=== PATIENT | female | born 1945 | race Caucasian/White ===

== ENCOUNTER → 2023-03-04 | Day surgery (SDC) | payer MEDICARE, BC ==
[2023-03-03 12:14] VITALS: BMI 28.3
[~2023-03-04] MED LIST: Heparin 10,000 UNITS/ 10 ML VIAL ONE; Isoproterenol 0.2 MG/1 ML AMP ONE; Ketamine In 0.9 % NaCl 50 MG/5 ML SYRINGE ONE; Lidocaine 1% (PF) 30 ML VIAL ONE; Lidocaine 1% PF 5 ML VIAL ONE; Metoprolol Tartrate 25 MG TAB PO SCH; Metoprolol Tartrate 5 MG/5 ML VIAL ONE; Ondansetron PF 4 MG/2 ML Vial ONE; PHENYLEPHRINE-NS 100 MCG/ML 10 ML SYRINGE ONE; PROPOFOL 200 MG/20 ML VIAL ONE; Propofol 500 MG/50 ML VIAL ONE; ePHEDrine Sulfate 50 MG/10 ML VIAL ONE; fentaNYL 50 mcg/mL 1 mL Vial ONE
== END ==
LOC: SDC 08:07
PROVIDERS: ATTEND Internal Medicine Cardiovascular Disease
PROC: 02583ZZ Destruction of Conduction Mechanism, Percutaneous Approach (ICD-10-PCS; principal; 2023-03-04)
DX: I47.10 Supraventricular tachycardia, unspecified (principal); I48.0 Paroxysmal atrial fibrillation; I10 Essential (primary) hypertension; K21.9 Gastro-esophageal reflux disease without esophagitis; Z90.49 Acquired absence of other specified parts of digestive tract; Z90.89 Acquired absence of other organs; Z79.899 Other long term (current) drug therapy
CPT/HCPCS: 93621; 93623; 93653; C1730; C1760; C1894 ×4; C2630; J3010; J1644; J2001; J2405; J2704; J3490

== ENCOUNTER 2023-04-23 20:41 | Emergency (ER) | payer BC, MEDICARE ==
[2023-04-23] MEDS ORDERED: Metoprolol Tartrate 5 MG (5 mL) VIAL ONE (21:23)
[2023-04-23 21:44] LABS: #Eosinphils 0.3 thou/uL (0.0-0.7); #Monocytes 0.8 thou/uL (0.11-0.59); #Neutrophils 4.4 thou/uL (1.40-6.50); %Basophils 0.5 % (0.0-1.0); %Eosinophils 3.5 % (0.0-10.0); %Lymphocytes 29.9 % (21.0-51.0); %Monocytes 10.6 % (0.0-10.0); %Neutrophils 55.2 % (42.0-75.0); Hematocrit 44.7 % (36.0-47.0); Hemoglobin 14.9 g/dL (12.0-16.0); Mean Corpuscular HGB CONC 33.3 g/dL (32.0-36.0); Mean Corpuscular Hemoglobin 30.2 pg (27.0-31.0); Mean Corpuscular Volume 90.5 fl (78.0-98.0); Mean Platelet Volume 10.7 fL (7.4-10.4); Platelet Count 257 10x3/uL (130-400); RBC Distribution Width 13.2 % (11.5-14.5); Red Blood Cell (RBC) Count 4.94 mill/uL (4.20-5.40); White Blood Cell (WBC) Count 7.9 10x3/uL (4.8-10.8)
[2023-04-23 21:57] LABS: INR-International Normal Ratio 1.1; PTT 30.4 sec (22.9-36.1)
[2023-04-23 22:08] LABS: ALT (SGPT) 25 U/L (8-55); AST (SGOT) 22 U/L (5-34); Albumin 4.1 g/dL (3.4-4.8); Alkaline Phosphatase 113 U/L (40-110); Anion Gap 12 mmol/L (10-20); BUN (Urea Nitrogen) 18 mg/dL (9.8-20.1); Bilirubin, Total 0.3 mg/dL (0.2-1.2); Calc. Creatinine Clearance 0 mL/min (70-130); Carbon Dioxide 27 mmol/L (23-31); Chloride 107 mmol/L (98-107); Estimated GFR 73; Globulin 3.6 g/dL (2.4-3.5); Glucose 112 mg/dL (83-110); Magnesium 1.9 mg/dL (1.6-2.6); Potassium 3.5 mmol/L (3.5-5.1); Protein, Total 7.7 g/dL (5.8-8.1); Sodium 142 mmol/L (136-145)
[2023-04-23 22:10] LABS: Troponin I 0.014 ng/mL (< 0.028)
[2023-04-23] MEDS ORDERED: dilTIAZem 125 MG/25 ML SDV ONE (22:52)
== END 2023-04-23 23:30 | disposition home or self-care (01) ==
LOC: ERS 20:41
DX: I48.91 Unspecified atrial fibrillation (principal); Z79.01 Long term (current) use of anticoagulants
CPT/HCPCS: 36415; 71045; 80053; 83735; 84484; 85025; 85610; 85730; 86850; 86900; 86901; 93005; 96361; 96374

== ENCOUNTER 2023-05-04 17:18 | Emergency (ER) | payer MEDICARE ==
[2023-05-04] MEDS ORDERED: dilTIAZem 25 MG/5 ML VIAL ONE (17:56)
[2023-05-04] MEDS ORDERED: dilTIAZem 125 MG/25 ML SDV ONE (17:56)
[2023-05-04 18:30] LABS: #Eosinphils 0.2 thou/uL (0.0-0.7); #Monocytes 0.8 thou/uL (0.11-0.59); #Neutrophils 5.3 thou/uL (1.40-6.50); %Basophils 0.5 % (0.0-1.0); %Eosinophils 2.9 % (0.0-10.0); %Lymphocytes 19.5 % (21.0-51.0); %Monocytes 10.1 % (0.0-10.0); %Neutrophils 66.7 % (42.0-75.0); Hematocrit 45.6 % (36.0-47.0); Hemoglobin 15.2 g/dL (12.0-16.0); Mean Corpuscular HGB CONC 33.3 g/dL (32.0-36.0); Mean Corpuscular Hemoglobin 30.2 pg (27.0-31.0); Mean Corpuscular Volume 90.7 fl (78.0-98.0); Platelet Count 263 10x3/uL (130-400); RBC Distribution Width 13.2 % (11.5-14.5); Red Blood Cell (RBC) Count 5.03 mill/uL (4.20-5.40); White Blood Cell (WBC) Count 7.9 10x3/uL (4.8-10.8)
[2023-05-04 19:25] LABS: ALT (SGPT) 25 U/L (8-55); AST (SGOT) 50 U/L (5-34); Alkaline Phosphatase 98 U/L (40-110); Anion Gap 15 mmol/L (10-20); BUN (Urea Nitrogen) 17 mg/dL (9.8-20.1); Bilirubin, Total 0.3 mg/dL (0.2-1.2); Calc. Creatinine Clearance 0 mL/min (70-130); Calcium 10.2 mg/dL (7.8-10.44); Carbon Dioxide 24 mmol/L (23-31); Chloride 104 mmol/L (98-107); Estimated GFR 65; Glucose 111 mg/dL (83-110); Potassium 4.9 mmol/L (3.5-5.1); Sodium 138 mmol/L (136-145)
[2023-05-04 19:27] LABS: SARS-CoV-2 NAA Rapid Test Not Detected (NotDetected)
== END 2023-05-04 21:20 | disposition home or self-care (01) ==
LOC: ERS 17:18
DX: I48.91 Unspecified atrial fibrillation (principal); Z79.01 Long term (current) use of anticoagulants
CPT/HCPCS: 0240U; 71045; 80053; 84484; 85025; 93005; 96365; 96366; 96376

== ENCOUNTER 2024-01-11 06:47 | Day surgery (SDC) | payer MEDICARE ==
[2024-01-04 13:52] VITALS: BMI 29.2
[2024-01-11] MEDS ORDERED: Protamine Sulfate 50 MG/5 ML VIAL ONE (08:06)
[2024-01-11] MEDS ORDERED: Heparin 10,000 UNITS/ 10 ML VIAL ONE (08:06)
[2024-01-11] MEDS ORDERED: Atropine Sulfate 1 mg/10 ml Syringe ONE ×2 (08:07→09:28)
[2024-01-11] MEDS ORDERED: Heparin 25,000 units/D5W 500 ML ONE (08:07)
[2024-01-11] MEDS ORDERED: Dexamethasone 4 mg/ml Vial ONE (09:27)
[2024-01-11] MEDS ORDERED: fentaNYL 50 mcg/mL 1 mL Vial ONE (09:27)
[2024-01-11] MEDS ORDERED: Rocuronium Bromide 10 MG/ML (10ML VIAL) ONE (09:27)
[2024-01-11] MEDS ORDERED: Ondansetron PF 4 MG/2 ML Vial ONE (09:27)
[2024-01-11] MEDS ORDERED: SUGAMMADEX SODIUM 200 MG/2 ML VIAL ONE (09:27)
[2024-01-11] MEDS ORDERED: PROPOFOL 20 ML ONE (09:28)
[2024-01-11] MEDS ORDERED: Glycopyrrolate 0.2 MG/ML 5 ML SYRINGE ONE (09:28)
[2024-01-11] MEDS ORDERED: ePHEDrine Sulfate 50 MG/10 ML VIAL ONE (11:18)
== END 2024-01-11 16:35 | disposition home or self-care (01) ==
LOC: SDC 06:47
PROVIDERS: ATTEND Internal Medicine Cardiovascular Disease
PROC: 02583ZZ Destruction of Conduction Mechanism, Percutaneous Approach (ICD-10-PCS; principal; 2024-01-11)
PROC: 4A023FZ Measurement of Cardiac Rhythm, Percutaneous Approach (ICD-10-PCS; 2024-01-11)
PROC: 4A0234Z Measurement of Cardiac Electrical Activity, Percutaneous Approach (ICD-10-PCS; 2024-01-11)
DX: I48.0 Paroxysmal atrial fibrillation (principal); I10 Essential (primary) hypertension; K21.9 Gastro-esophageal reflux disease without esophagitis; F41.0 Panic disorder [episodic paroxysmal anxiety]; Z90.89 Acquired absence of other organs; Z90.49 Acquired absence of other specified parts of digestive tract; Z98.890 Other specified postprocedural states
CPT/HCPCS: 85347 ×2; 93005; 93656; 93657; C1732; C1759; C1760; C1766; C1893; C1894 ×3; J0461; J1100; J1644 ×2; J2405; J2704; J2720; J3010; C1733; C1769